=== PATIENT | male | born 1980 | race Caucasian/White ===

== ENCOUNTER 2022-10-29 09:42 | Day surgery (SDC) | payer OTHER ==
--- NOTE | 2022-10-28 10:22 | HP ---
DATE OF SURGERY: 10/29/2022 HISTORY OF PRESENT ILLNESS: The patient is a 41-year-old male presents with complaints of rectal bleeding. The patient has not had any colonoscopy to date. He is having some bright red rectal bleeding and pain at the anal area. It has been coming and going. Blood is quite a lot when it happens, it will fill the bowl. He complains of some left lower quadrant pain. He states his grandmother had colon cancer. The patient reports having a bowel movement daily but not always, loose to hard. PAST MEDICAL HISTORY: None. PAST SURGICAL HISTORY: Tonsillectomy. ALLERGIES: NKDA. MEDICATIONS: Melatonin. FAMILY HISTORY: Colon cancer. SOCIAL HISTORY: Former smoker, occasional alcohol. REVIEW OF SYSTEMS: CONSTITUTIONAL: Denies fever or chills. CHEST: Denies shortness of breath. CVS: Denies chest pain. ABDOMEN: Has abdominal pain. PHYSICAL EXAMINATION: GENERAL: No acute distress. CHEST: Nonlabored. No shortness of breath. CVS: Regular rate and rhythm. ABDOMEN: Soft. IMPRESSION: Bright red rectal bleeding. PLAN: Colonoscopy with Dr. Herbert Xiao. As dictated by Vianey Blair NP.
[2022-10-29 10:12] VITALS: O2SAT 98
[2022-10-29] MEDS ORDERED: Lactated Ringers 1,000 ML IV SCH (10:30)
[2022-10-29] MEDS ORDERED: DIPRIVAN 200 MG/20 ML IV ONE (11:15)
[2022-10-29] MEDS ORDERED: Xylocaine-Mpf 2% 5 Ml Vial ONE (11:15)
[2022-10-29] MEDS ORDERED: Versed 2 MG/2 ML Injection ONE (11:15)
[2022-10-29 13:15] VITALS: BP 135/91; PULSE 70
--- NOTE | 2022-11-02 11:08 | OP ---
SURGERY DATE/TIME: 10/29/2022 1118 PREOPERATIVE DIAGNOSIS: Blood per rectum. POSTOPERATIVE DIAGNOSES: 1) A 3 mm descending colon polyp. 2) Moderate internal hemorrhoids. PROCEDURE: Colonoscopy complete to cecum. SURGEON: Herbert Xiao M.D. ANESTHESIA: MAC. COMPLICATIONS: None. CONDITION: Stable. DESCRIPTION OF PROCEDURE: Colonoscopy to cecum with hot polypectomy x1. Additional finding of moderate internal hemorrhoids which did look they were raw and possibly recently bleeding. Prep score was excellent. Anticipated follow up at age 44. He does have family history that is positive for colon cancer.
== END 2022-10-29 12:25 | disposition home or self-care (01) ==
LOC: SDC 09:42
PROVIDERS: ATTEND Surgery
DX: D12.4 Benign neoplasm of descending colon (principal); K92.1 Melena; Z80.0 Family history of malignant neoplasm of digestive organs; K64.8 Other hemorrhoids
CPT/HCPCS: J2250; J2704